=== PATIENT | male | born 1945 | race Caucasian/White ===

== ENCOUNTER 2023-01-07 07:26 | Outpatient (OUT) | payer MEDICARE, OTHER, SELFPAY ==
[2023-01-07 07:54] LABS: Basophils Absolute Auto 0.1 10^3/uL (0.0-0.1); Basophils Percent Auto 0.9 % (0.2-2.0); Eosinophils Absolute Auto 0.7 10^3/uL (0.0-0.7); Eosinophils Percent Auto 8.9 % (0.9-7.0); Hemoglobin 14.6 g/dL (14.0-18.0); Immature Granulocytes Abs Auto 0.04 10^3/uL (0.00-0.03); Immature Granulocytes Pct Auto 0.5 % (0.0-0.5); Lymphocytes Absolute Auto 0.9 10^3/uL (1.2-3.8); Lymphocytes Percent Auto 12.5 % (20.5-60.0); Mean Corpuscular HGB Conc 34.8 g/dL (29.9-35.2); Mean Corpuscular Hemoglobin 33.3 pg (25.9-34.0); Mean Corpuscular Volume 95.9 fL (80.0-94.0); Mean Platelet Volume 8.8 fL (9.5-13.5); Monocytes Absolute Auto 0.6 10^3/uL (0.3-0.8); Monocytes Percent Auto 7.7 % (1.7-12.0); Neutrophils Absolute Auto 5.2 10^3/uL (1.4-6.5); Neutrophils Percent Auto 69.5 % (43.0-75.0); Platelet Count 130 10^3/uL (150-450); Red Blood Count 4.38 10^6/uL (4.70-6.10); Red Cell Distribution Width 14.1 % (11.0-15.0); White Blood Count 7.5 10^3/uL (4.0-11.0)
[2023-01-07 08:39] LABS: Alkaline Phosphatase 67 U/L (46-116); Anion Gap 10.5; Aspartate Amino Transferase 24 U/L (15-37); BUN Creatinine Ratio 13.9; Bilirubin Total 0.6 mg/dL (0.2-1.0); Calcium 9.2 mg/dL (8.5-10.1); Carbon Dioxide 30.8 mmol/L (21.0-32.0); Chloride 103 mmol/L (98-107); Chol HDL Ratio 5.2; Cholesterol 178 mg/dL (<=200); Estimated GFR (African America >60 (>=60); Estimated GFR (Non-African Ame >60 (>=60); Glucose 106 mg/dL (74-106); HDL Cholesterol 34 mg/dL (40-60); Potassium 4.3 mmol/L (3.5-5.1); Sodium 140 mmol/L (136-145); Triglycerides 123 mg/dL (<=150); VLDL CHOLESTEROL 24.6 mg/dL
[2023-01-07 09:41] LABS: Alanine Aminotransferase 35 U/L (16-63); Albumin Globulin Ratio 1.2; Albumin Level 3.8 g/dL (3.4-5.0); Globulin 3.2 g/dL
== END 2023-01-07 07:27 ==
LOC: LAB 07:31
PROVIDERS: PCP Family Medicine; Visit Provider Family Medicine
DX: R03.0 Elevated blood-pressure reading, without diagnosis of hypertension (principal); Z12.5 Encounter for screening for malignant neoplasm of prostate
CPT/HCPCS: 36415; 80053; 80061; 85025; G0103

== ENCOUNTER 2023-06-30 09:14 | Outpatient (OUT) | payer MEDICARE, OTHER, SELFPAY ==
--- NOTE | 2023-06-30 | NM_ITS ---
Patient Name: KARIS BUSTAMANTE MR#: [id number] : 1945 Exam Date: 06/30/2023 Ordering Doctor: DR Almas Esquivel D.O. RADIOLOGY REPORT PROCEDURE: NM JC PERF SPECT REST STR COMPARISON: None. INDICATIONS: DYSPNEA ON EXERTION TECHNIQUE: Exam Description: Stress/Rest two day protocol gated SPECT Rest Imagin.6 mCi Tc-99m Cardiolite IV on 06/30/2023 Stress Imaging 25.4 mCi Tc-99m Cardiolite IV on 07/07/2023 Exercise Protocol: 0.4 mg Lexiscan given IV Heart Rate (bpm): Rest: 63 Max: 83 PMHR: 58 Blood Pressure: Rest: 158/78 Max: 158/78 Symptoms: Rest and peak stress ECG findings were normal and the exercise portion of the study was normal per attending physician Dr. Dietz . For more details please see separate cardiac stress test report. FINDINGS: QUALITY OF STUDY: Good. PERFUSION DEFECT: LOCATION: Apical anterior. [place]. SIZE: Small (1-2 segments). SEVERITY: Mild. TYPE: Persistent. WALL MOTION: Normal. LV SIZE: Enlarged; EDV 194 mL. TID / TCD: None; 1.0 LVEF: Abnormal. Calculated EF 41%. SUMMARY: Myocardial perfusion imaging study has ABNORMAL findings. CONCLUSION: 1. Two small fixed defect in the anterior wall, LAD distribution. No reversible ischemia suggested 2. Dilated left ventricle, EDV 194 milliliters 3. Low left ventricular ejection fraction of 41% 4. Normal exercise test Dictated by: Don Dallas MD on 07/07/2023 at 11:46 Approved by: Don Dallas MD on 07/07/2023 at 11:58
== END 2023-06-30 09:15 | disposition home or self-care (01) ==
LOC: NM 09:15
PROVIDERS: PCP Family Medicine; Visit Provider Internal Medicine
DX: R06.09 Other forms of dyspnea (principal)
CPT/HCPCS: 78452; A9500

== ENCOUNTER 2023-07-07 07:06 | Outpatient (OUT) | payer MEDICARE, OTHER, SELFPAY ==
[2023-07-07] MEDS: REGADENOSON 0.4 MG/5 ML SYRINGE IV (09:15)
--- NOTE | 2023-07-07 09:48 | P.STRESS_ITS ---
Stress Test Stress Test Requesting physician: Symone Jimenez Procedure: Lexiscan Cardiolite stress test General Information: Reason for Stress Test: Dyspnea Cardiac History and Risk Factors: Denies any personal cardiovascular history. Brother s/p CABG. Resting 12 - Lead Electrocardiogram: Rate & rhythm: Normal sinus at a rate of 64. [place]: Normal Presence of left bundle branch block. T-waves & ST-segments: Significant ST-segment downsloping in the inferior leads and mildly in V6, T-waves inverted in I and flattened in aVL. Comparison from 12/01/2022: Inferior leads and V6 are similar. T-waves are upright in I and aVL. Stress Test: Protocol: Wild protocol was initiated, but due to inability to walk on the treadmill, the exercise component was canceled.? Testing was changed to Lexiscan protocol, with injection of 0.4mg Lexiscan IV push followed by Cardiolite. Blood pressure: Initial and maximum: 158/78 Rate & rhythm: Patient remained in sinus rhythm during the exercise and recovery portions of the study.? The maximum heart rate was 83, which was 58% of the maximum predicted heart rate 142. Occasional PVCs noted. ST-segments & T-waves: There were no T-wave changes and no ST-segment changes when compared to the baseline EKG. Patient response/symptoms: There were no symptoms similar to the chief complaint. Interpretation: Normal Lexiscan Cardiolite stress test when compared to baseline EKG, though difficult to evaluate subtle changes due to presence of a left bundle branch block. Asymptomatic. Cardiolite imaging interpretation will be reported separately. Clinical correlation required.?
== END 2023-07-07 07:07 | disposition home or self-care (01) ==
LOC: CARD 07:06
PROVIDERS: PCP Family Medicine; Visit Provider Internal Medicine
DX: R06.09 Other forms of dyspnea (principal)
CPT/HCPCS: 93017; J2785

== ENCOUNTER 2025-06-09 06:29 | Outpatient (OUT) | payer MEDICARE, OTHER, SELFPAY ==
--- OUTSIDE RECORDS SUMMARY | 2025-06-08 06:34 | XMS_ITS | Continuity of Care Document ---
Author Organization [facility] Address [address] [place] [address] Phone Care Team Providers Care Color Developer Name Role Phone Symone Jimenez MD Primary Care Provider Symone Jimenez MD Attending Provider [phone] Care Teams Patient Care Team Team Status: Active Member Role/Relationship Status Dates Symone Jimenez MD Primary Care Provider Active Patient Care Team Team Status: Inactive Member Role/Relationship Status Dates Symone Jimenez MD Primary Care Provider Active Start: June 08, 2025 End: June 08, 2025Symone Jimenez MDAttending ProviderActiveStart: June 08, 2025 End: June 08, 2025 Chief Complaint and Reason for Visit Chief Complaint Admit Date Wellness June 08, 2025 10:55am Reason for Visit Admit Date B12 deficiency anemia June 08 10:55am HTN (hypertension) June 08, 2025 10:55am Medicare annual wellness visit, subseque nt June 08, 2025 10:55am Allergies, Adverse Reactions, Alerts Allergen Type Severity Reaction Last Updated Verified Status No Known Allergies Allergy Unknown June 08, 2025 11:01amYesActive Social History Smoking Status Unknown if ever smoked Observation Status Observation Response Date of Response Legal Sex Male (finding) [facility] Family History Relationship Condition Age at Onset Recorded Date/T augustina father Unknown motherDeceasedUnknown Problems Active Problems Problem Diagnosis/Recorded Date Onset Date Stat Medicare annual wellness vis it, subsequent June 08, 2025 11:30am Unknown Active B12 deficiency anemia June 08, 2025 11:29am Unkn own Active Seasonal allergic rhinitis d ue to pollen March 30, 2024 3:42pm Unknown Active Infected tooth June 21, 2024 11:43am Unknown Active HTN (hypertension) June 21, 2024 11:45am Unknown Active Chronic sinusitis, unspecified March 30, 2024 3:4 2pm Unknown Active Medications Medication Status Dose Units Route Directions Qty Days Refills S tart Date Stop Date End Date Reason(s) Instructions Adherence Montelukast (Singulair) 10 mg tablet Discontinued 10 MG PO Daily March 21, 2024 11:00pmMarch 31, 2024 8:46amMontelukast (Singulair) 10 mg yeasywGylltnuwnbtp80ATKPLuyos389Raciemv 2023 11:13amNovember 2023 10:02amLosartan 50 mg tabletDiscontinued0.ROUTE.KASGKKP994Yohu 2024 3:34pm April 21, 2025 10:17amTAKE 1 TABLET BY MOUTH EVERY DAYLosartan 50 mg tabletDiscontinued0.ROUTE.OBPONFY585Ecscrqtwp 26th, 2025 10:17amNovember 2024 11:25amTAKE 1 TABLET BY MOUTH EVERY DAYNaproxen Sodium 220 mg tablet Wjvowrurtapi8QMSTKFyzuh 12 hoursMarch 29, 2024 11:00pmMarch 31, 2024 8:47amFreeTextSi tablet with food or milk as needed Orally every 12 hrs; Note: Source Status: Taking;Provider: Tony Ashby ( )Aspirin 81 mg tablet,delayed release (DR/EC)Rnbueg99NDNCQzioyYiqwspxng 3rd, 2024 11:00pm FreeTextSi tablet Orally Once a day; Note: Source Status: Taking; Provider: Tony Ashby ( )Complies with drug therapyAscorbic Acid (Vitamin C) 1,000 mg vjoenqEqsvmm7GIGXDYihsbKigtgrlfu 3rd, 2024 11:00pmFreeTextSi tablet Orally Once a day; Note: Source Status: Taking; Provider: Tony Ashby ( )Complies with drug therapyCyanocobalamin (Vitamin B-12) 1,000 mcg iwbmiggEywgkq8021KYYONucqrc monthS2023 11:00pmComplies with drug therapyNaproxen Sodium (Aleve) 220 mg dxovbgmFzechd052EETMUespp daily as neededSept2023 11:00pmComplies with drug therapyMontelukast (Singulair) 10 mg gihsceIlmdtxiuohgv83TUHEYjely984Vnmooaxoq 5th, 2024 9:09am May 25, 2024 11:13amLosartan 25 mg wybwecEmwanzqzfclv47EFNSHbzgp841 March 30, 2024 11:00pmNov2023 10:18amDoxycycline Hyclate 100 mg tzzccmjLpmqskpokcoi072OTZVZcsvo uxsss160Cyeovjyyg 4th, 2024 11:00pmNov2023 10:02amOmeprazole 20 mg capsule,delayed release(DR/EC)Kwghog89CUJO Every lhdqmii192Tjcrghzf 13th, 2025 12:00amComplies with drug therapyLosartan- Hydrochlorothiazide 50-12.5 mg odufqdJuixfg5FPJWYSrvav354Euwkwrxk 13th, 2025 12:00amComplies with drug therapyAmoxicillin 500 mg rawouhdSlvjyilceble915AMHY Three times tfyvp592Tzewemjo 26th, 2024 12:00amNovember 2024 11:01am Losartan 50 mg eovmjoMmvslqjzlhdu52HREDDhszz764Bftbvkyt 26th, 2024 10:17amJune 2024 3:34pm Vital Signs Vital Reading Result Reference Range Collection Date/Time Height 64.5 [in_i] June 08, 2025 11:55naIzmalm484.95 kgGood [facility]20[facility] 11:01amHeart Rate 63 /vtj15-075RazpcihmJune 08, 2025 11:01amRespiratory rate14 /dtj82-49Qehuiacj 13th, 2025 11:01amOxygen saturation by Pulse jtsigadv07 %95-100[facility]2024 11:01amBP Dyeoyfbv052 mm[Hg]100-140June 08, 2025 11:01amBP Diastolic 86 mm[Hg]60-100Nov2024 11:01amBMI (Body Mass Index)40.2 kg/m2 June 08, 2025 11:01am Advance Directives Advance Directive Response Recorded Date/ Time Advance Directives No March 8:28am Insurance Providers Guarantor Miguel Capps Didion Address [address] [place] [address]Njfnhsh Info.Home Phone: Payer Group Member ID Coverage Type Subscriber Relationship to Subscriber Effective Date Expiration Date Medicare [id number] F Didion Id: [id number] [address] [place] [address] Home Phone: SelfMedicare [employer] [id number] F Didion Id: [id number] [address] [place] [address] Home Phone: self[facility] Id: [id number] F Didion Id: [id number] [address] [place] [address] Home Phone: Self Encounters Encounter Location(s) Arrival/Admit Date Discharge/Departure Date Discharge/Departure Disposition Provider(s) Departed Physician/ Provider Office Visit -[facility] June 08, 2025 10:55am June 08, 2025 11:33am Discharged to home care or self care (routine discharge) Symone Jimenez MD Recent Diagnosis Onset Date Admit Date B12 deficiency anemia Unknown May 272024 10:55am HTN (hypertension) Unknown May 10:55am Medicare annual wellness visit, subsequent Unkno wn June 08, 2025 10:55am Assessments Diagnosis Onset Date Resolution Status Admit Date B12 deficiency anemia acuteJune 08, 2025 10:55amHTN (hypertension)acuteJune 08, 2025 10:55amMedicare annual wellness visit, subsequentacuteJune 08, 2025 10:55am Plan of Treatment Future Tests Future scheduled test information is unavailable Pending Tests Test Name Ordered Date Scheduled Date Comprehensive Metabolic Panel June 08 11:29am Future Visits Future appointment information is unavailable Future Procedures Procedure Name Ordered Date Scheduled Date Complete Blood Count Auto Diff June 08 11:29am Lipid PanelNov2024 11:29amMicroAlb Creat Ratio,UNovember 2024 11:31amVit. B12/Folate [facility] 11:29am Future Medications Future medication information is unavailable Patient Instructions Patient instructions are unavailable
--- OUTSIDE RECORDS SUMMARY | 2025-06-09 06:34 | XMS_ITS | Clinical Summary ---
Author Organization [facility] Address [address] [place] [address] Care Team Providers Care Mortgage Branch Manager Name Role Phone Symone Jimenez MD Primary Care Provider [phone] Allergies Active AllergyReactionsCriticalityNoted GdlpCwqlzxsaUhppy17/02/2023 Other Reaction(s): Nose runs Medications MedicationSigDispense QuantityRefillsLast FilledStart DateEnd DateStatus montelukast (Singulair) 10 MG tablet 3Active Ascorbic Acid (Vitamin C) 500 MG capsule Active ASPIRIN 81 PO Active losartan (Cozaar) 50 MG tablet Take 50 mg by mouth Daily5ActiveHospital, Clinic, or Other Facility Administered MedicationOrdered DoseRouteFrequencyStart DateEnd DateStatus sodium hyaluronate (Gelsyn-3) injection 2 mL Indications:Primary osteoarthritis of both knees2 mLIXOnce PRN Procedure Ended sodium hyaluronate (Gelsyn-3) injection 2 mL Indications:Primary osteoarthritis of both knees2 mLIXOnce PRN Procedure Ended sodium hyaluronate (Gelsyn-3) injection 2 mL Indications:Primary osteoarthritis of both knees2 mLIXOnce PRN Procedure Ended sodium hyaluronate (Gelsyn-3) injection 2 mL Indications:Primary osteoarthritis of both knees2 mLIXOnce PRN Procedure Ended Active Problems No known active problems Encounters DateTypeDepartmentCare VxxjOlqigmllrgy46/29/2025 10:00 AM EDTProcedure Visit [facility] [address] [place] [phone] Don Garg, DO Primary osteoarthritis of both knees05/24/2025amb flowsheet [facility] [address] [place] [phone] Don Garg, DO 05/24/20258706Bbxdrz64/22/2025 9:45 AM EDTProcedure Visit [facility] [address] [place] [phone] Don Garg, DO Primary osteoarthritis of both knees05/17/2025amboo flowsheet [facility] [address] [place] [place] [phone] Don Garg, DO 05/17/20253274Vciubs62/17/2025 9:45 AM EDTOffice Visit [facility] [address] [place] [address] Don Garg, DO Primary osteoarthritis of both knees (Primary Dx); Chronic pain of both knees05/12/2025 8:05 AM EDTAncillary Procedure [facility] [address] [place] [address] 05/12/2025 8:00 AM EDTAncillary Procedure [facility] [address] [place] [address] 05/12/2025Travelfrom Last 3 Months Family History Medical HistoryRelationNameCommentsDiabetesMotherHypertensionMotherDiabetes Paternal GrandfatherDiabetesPaternal GrandmotherRelationNameStatusCommentsFather DeceasedMaternal GrandfatherDeceasedMaternal GrandmotherDeceasedMotherDeceased Paternal GrandfatherDeceasedPaternal GrandmotherDeceased Social History Tobacco UseTypesPacks/DayYears UsedDateSmoking Tobacco: NeverSmokeless Tobacco: Never Tobacco Cessation:Counseling Given: Not Answered Alcohol UseStandard Drinks/WeekCommentsYes0 (1 standard drink = 0.6 oz pure alcohol)sociallySex and Gender InformationValueDate RecordedSex Assigned at BirthNot on fileLegal LyqJdoh9811/24/2022 8:32 PM EDTGender IdentityNot on file Sexual OrientationNot on file Last Filed Vital Signs Vital SignReadingTime TakenCommentsBlood Mrgknrcu905/8401/ 12:00 PM EST Pulse--Enhkbtifvcw09.9 ??C (96.7 ??F)06/24/2023 8:09 AM ESTRespiratory Rate-- Oxygen Saturation--Inhaled Oxygen Concentration--Lplbnv593 kg (236 lb)05/24/2025 10:01 AM PHUYkoovu825.6 cm (5' 6 )05/24/2025 10:01 AM EDTBody Mass Index38.09 05/24/2025 10:01 AM EDT Plan of Treatment Not on file Procedures Procedure NamePriorityDate/TimeAssociated DiagnosisCommentsPR ARTHROCENTESIS ASPIR&/INJ MAJOR JT/BURSA W/O DGYerkqsz05/29/2025 10:02 AM EDT Primary osteoarthritis of both knees MA ARTHROCENTESIS ASPIR&/INJ MAJOR JT/BURSA W/O LLArshzmi78/22/2025 10:08 AM EDT Primary osteoarthritis of both knees XR KNEE 3 VIEWS XESNAdnftmg60/17/2025 7:51 AM EDT Primary osteoarthritis of both knees XR KNEE 3 VIEWS ILQPBMfxonqv95/17/2025 7:51 AM EDT Primary osteoarthritis of both knees from Last 3 Months Results * MA ARTHROCENTESIS ASPIR&/INJ MAJOR JT/BURSA W/O US (05/24/2025 10:02 AM EDT) Narrative Don Garg DO - 05/24/2025 10:02 AM EDT Don Garg DO 05/29/2025 12:42 PM L Inj/Asp: bilateral knee on 05/24/2025 10:02 AM Indications: pain and diagnostic evaluation Details: 22 G needle Medications (Right): 2 mL sodium hyaluronate 16.8 MG/2ML Medications (Left): 2 mL sodium hyaluronate 16.8 MG/2ML Authorizing ProviderResult TypeResult StatusDavid A Britany DOIN CLINIC/BEDSIDE ORDERABLESFinal Result * MA ARTHROCENTESIS ASPIR&/INJ MAJOR JT/BURSA W/O US (05/17/2025 10:08 AM EDT) Shari EsquivelDon ventura - 05/17/2025 10:08 AM EDT Andres DO Britany 05/24/2025 7:37 AM L Inj/Asp: bilateral knee on 05/17/2025 10:08 AM Indications: pain Details: 22 G needle Medications (Right): 2 mL sodium hyaluronate 16.8 MG/2ML Medications (Left): 2 mL sodium hyaluronate 16.8 MG/2ML Gelsyn 2 of 3 Injection Bilateral knee Patient is seen and evaluated today for bilateral knee pain and stiffness. ??Continued swelling and stiffness despite conservative course with ice, Tylenol, NSAID's and compression. ?Did well with the first injections last week. Physical Exam: The patient is examined in the office today. ?? The bilateral knees have mild aseptic swelling. ??Hypertrophic changes are noted. ?AROM is decreased with pain. ?? Collateral ligaments are intact to stress testing at 0 and 30 degrees. ?? Positive grind test of the patella. ??Gait is stiff. Xrays: None new. Assessment: Bilateral knee Osteoarthritis-M17.0 Bilateral knee pain-M25.561/M25.562 Antalgic gait-R26 Treatment/Plan: The nature of the findings were discussed at length. ??After lengthy discussion, the patient elects to move forward with the second viscosupplementation injection with Gelsyn bilateral. ?Under sterile technique, 2 ml of Gelsyn, 16.8 mg of hyaluronic acid was injected to each knee. ??Needle was removed and adequate hemostasis was achieved. ?The patient tolerated both injections well. ?? Patient was ambulatory and discharged in stable condition. ?? Any reactions, concerns or continued pain will be reported via phone call or return visit. ??All questions were answered. ??Follow-up next week for the third bilateral knee Gelsyn injection. Authorizing ProviderResult TypeResult StatusDavid A Britany [facility]/BEDSIDE ORDERABLESFinal Result * XR knee 3 views left (05/12/2025 7:51 AM EDT)Anatomical RegionLaterality ModalityLower Extremities, KneeLeftRadiographic ImagingSpecimen (Source) Anatomical Location / LateralityCollection Method / VolumeCollection Time Received Time Narrative 05/15/2025 1:11 PM EDT Imaging Result: Examination of his x-ray, AP bilateral weight bearing, bilateral sunrise, bilateral laterals of the knees total of six views with permanent images are saved to the record does show evidence of severe end stage osteoarthritis with essential bone on bone change varus. ?? No evidence of fracture or other osseous abnormality. ? Authorizing ProviderResult TypeResult StatusDavid A Pocos DOIMG XR PROCEDURES Final Result * XR knee 3 views right (05/12/2025 7:51 AM EDT)Anatomical RegionLaterality ModalityLower Extremities, KneeRightRadiographic ImagingSpecimen (Source) Anatomical Location / LateralityCollection Method / VolumeCollection Time Received Time Narrative 05/15/2025 1:11 PM EDT Imaging Result: Examination of his x-ray, AP bilateral weight bearing, bilateral sunrise, bilateral laterals of the knees total of six views with permanent images are saved to the record does show evidence of severe end stage osteoarthritis with essential bone on bone change varus. ?? No evidence of fracture or other osseous abnormality. ? Authorizing ProviderResult TypeResult StatusDavid A Pocos DOIMG XR PROCEDURES Final Result from Last [address] [place] [address] Care Teams Team MemberRelationshipSpecialtyStart DateEnd Date Symone Jimenez MD [address] [place] [address] PCP - GeneralFamily Ezyibrkm83/22/25
[2025-06-09 07:09] LABS: Hematocrit 40.4 % (42.0-54.0); Hemoglobin 14.2 g/dL (14.0-18.0); Immature Granulocytes Abs Auto 0.03 10^3/uL (0.00-0.03); Immature Granulocytes Pct Auto 0.3 % (0.0-0.5); Lymphocytes Absolute Auto 1.1 10^3/uL (1.2-3.8); Mean Corpuscular HGB Conc 35.1 g/dL (29.9-35.2); Mean Corpuscular Hemoglobin 33.6 pg (25.9-34.0); Mean Corpuscular Volume 95.5 fL (80.0-94.0); Platelet Count 164 10^3/uL (150-450); Red Blood Count 4.23 10^6/uL (4.70-6.10); White Blood Count 8.7 10^3/uL (4.0-11.0)
[2025-06-09 07:17] LABS: Microalbum Creatinine Ratio Ur 125.8 mg/g (0.0-29.9)
[2025-06-09 07:40] LABS: Alanine Aminotransferase 26 U/L (16-63); Albumin Globulin Ratio 1.2; Albumin Level 3.6 g/dL (3.4-5.0); Alkaline Phosphatase 62 U/L (46-116); Anion Gap 11.9; Aspartate Amino Transferase 21 U/L (15-37); Blood Urea Nitrogen 16.0 mg/dL (7.0-18.0); Calcium 8.6 mg/dL (8.5-10.1); Carbon Dioxide 28.2 mmol/L (21.0-32.0); Chloride 105 mmol/L (98-107); Cholesterol 138 mg/dL (<=200); Estimated GFR (African America >60 (>=60 mL/min/1.73m^2); Estimated GFR (Non-African Ame 51 (>=60 mL/min/1.73m^2); Globulin 3.0 g/dL; Glucose 110 mg/dL (74-106); HDL Cholesterol 34 mg/dL (40-60); Potassium 4.1 mmol/L (3.5-5.1); Sodium 141 mmol/L (136-145); Total Protein 6.6 g/dL (6.4-8.2); Triglycerides 59 mg/dL (<=150); VLDL CHOLESTEROL 11.8 mg/dL
[2025-06-09 11:35] LABS: Folate 8.40 ng/mL (8.60-58.90)
[2025-06-10 04:07] LABS: Vitamin B12 >2000 pg/mL (232-1245)
== END 2025-06-09 06:30 | disposition home or self-care (01) ==
LOC: LAB 06:31
PROVIDERS: PCP Family Medicine; Visit Provider Family Medicine
DX: Z00.00 Encounter for general adult medical examination without abnormal findings (principal); I10 Essential (primary) hypertension; D51.9 Vitamin B12 deficiency anemia, unspecified
CPT/HCPCS: 36415; 80053; 80061; 82043; 82570; 82607; 82746; 85025